=== PATIENT | male | born 1990 | race Caucasian/White ===

== ENCOUNTER → 2018-05-22 | Outpatient (CLI) | payer OTHER ==
[2018-05-22 12:31] LABS: BASOPHILS ABSOLUTE AUTO 0.06 K/mm3 (0.00-0.23); BASOPHILS PERCENT AUTO 1 % (0-2); EOSINOPHILS ABSOLUTE AUTO 0.16 K/mm3 (0.00-0.68); EOSINOPHILS PERCENT AUTO 3 % (0-6); Hematocrit 45.9 % (37.0-53.0); Hemoglobin 15.1 g/dL (13.5-17.5); IMMATURE GRAN ABSOLUTE AUTO 0.01 K/mm3 (0.00-0.10); IMMATURE GRAN PERCENT AUTO 0 % (0-1); LYMPHOCYTES ABSOLUTE AUTO 1.41 K/mm3 (0.84-5.20); LYMPHOCYTES PERCENT AUTO 28 % (21-46); MONOCYTES ABSOLUTE AUTO 0.44 K/mm3 (0.16-1.47); MONOCYTES PERCENT AUTO 9 % (4-13); Mean Corpuscular HGB 29.7 pg (26.0-34.0); Mean Corpuscular HGB Conc 32.9 g/dL (31.5-36.5); Mean Corpuscular Volume 90 fL (80-100); Mean Platelet Volume 11.7 fL (9.1-12.4); NEUTROPHILS ABSOLUTE AUTO 3.03 K/mm3 (1.96-9.15); NEUTROPHILS PERCENT AUTO 59 % (41-73); Platelet Count 258 K/mm3 (150-400); RDW Coefficient Variation 12.7 % (11.7-14.2); Red Blood Cell Count 5.09 M/mm3 (4.30-5.90); White Blood Cell Count 5.11 K/mm3 (4.00-11.30)
[2018-05-22 12:53] LABS: Alanine Aminotransfer (ALT/SGP 24 U/L (12-78); Albumin/Globulin Ratio 1.2 (0.8-1.8); Alk Phos 56 U/L (40-126); Anion Gap 3 mmol/L (6-16); Aspartate Aminotrans (AST/SGOT 13 U/L (12-37); Bilirubin, Total 1.8 mg/dL (0.1-1.0); Blood Urea Nitrogen 16 mg/dL (8-24); Bun/Creatinine Ratio 14.5 (12.0-20.0); CO2, Blood 29 mmol/L (21-32); Calcium, Blood 8.3 mg/dL (8.5-10.1); Chloride, Blood 105 mmol/L (98-108); Globulin, Blood 3.4 g/dL (2.2-4.0); Glomerular Filtration Rate >60 (60-); Glucose, Blood 82 mg/dL (70-99); Potassium, Blood 4.5 mmol/L (3.5-5.5); Sodium, Blood 137 mmol/L (136-145); Total Protein, Blood 7.4 g/dL (6.4-8.2)
[2018-05-23 17:43] LABS: Adenovirus F 40/41 Not Detected (NOT DETECT); Astrovirus Not Detected (NOT DETECT); Campylobacter Sp Not Detected (NOT DETECT); Cryptosporidium Not Detected (NOT DETECT); Cyclospora Cayetanensis Not Detected (NOT DETECT); E. Coli O157 Not Detected (NOT DETECT); Entamoeba Histolytica Not Detected (NOT DETECT); Enteroaggregative E. coli-EAEC Not Detected (NOT DETECT); Enteropathogenic E. coli-EPEC Not Detected (NOT DETECT); Enterotoxigenic E. coli-ETEC Not Detected (NOT DETECT); Giardia Lamblia Not Detected (NOT DETECT); Norovirus GI/GII Not Detected (NOT DETECT); Plesiomonas Shigelloides Not Detected (NOT DETECT); Rotavirus A Not Detected (NOT DETECT); Salmonella Sp Not Detected (NOT DETECT); Sapovirus Not Detected (NOT DETECT); Shiga Toxin-prod E. coli-STEC Not Detected (NOT DETECT); Shigella/Enteroin E. coli-EIEC Not Detected (NOT DETECT); Vibrio Cholerae Not Detected (NOT DETECT); Vibrio Sp Not Detected (NOT DETECT); Yersinia Enterocolitica Not Detected (NOT DETECT)
== END | disposition home or self-care (01) ==
LOC: LAB SHORT 12:22 → LAB EV 12:22
PROVIDERS: Physician Assistant
DX: R10.9 Unspecified abdominal pain (principal); R19.7 Diarrhea, unspecified
CPT/HCPCS: 80053; 83690; 85025; 87507

== ENCOUNTER 2018-08-14 14:27 | Emergency (ER) | payer OTHER ==
[~2018-08-14] VITALS: Ht 188 cm; Wt 72.6 kg
[2018-08-14 15:09] LABS: BASOPHILS ABSOLUTE AUTO 0.06 K/mm3 (0.00-0.23); BASOPHILS PERCENT AUTO 1 % (0-2); EOSINOPHILS ABSOLUTE AUTO 0.16 K/mm3 (0.00-0.68); EOSINOPHILS PERCENT AUTO 3 % (0-6); Hematocrit 47.7 % (37.0-53.0); Hemoglobin 15.4 g/dL (13.5-17.5); IMMATURE GRAN ABSOLUTE AUTO 0.01 K/mm3 (0.00-0.10); IMMATURE GRAN PERCENT AUTO 0 % (0-1); LYMPHOCYTES ABSOLUTE AUTO 1.46 K/mm3 (0.84-5.20); LYMPHOCYTES PERCENT AUTO 23 % (21-46); MONOCYTES PERCENT AUTO 6 % (4-13); Mean Corpuscular HGB 30.1 pg (26.0-34.0); Mean Corpuscular HGB Conc 32.3 g/dL (31.5-36.5); Mean Corpuscular Volume 93 fL (80-100); Mean Platelet Volume 11.6 fL (9.1-12.4); NEUTROPHILS ABSOLUTE AUTO 4.23 K/mm3 (1.96-9.15); NEUTROPHILS PERCENT AUTO 67 % (41-73); Platelet Count 248 K/mm3 (150-400); RDW Coefficient Variation 12.2 % (11.7-14.2); RDW Standard Deviation 42.2 fL (35.1-46.3); Red Blood Cell Count 5.12 M/mm3 (4.30-5.90); White Blood Cell Count 6.32 K/mm3 (4.00-11.30)
[2018-08-14 15:16] LABS: Source, Urine Clean Catch
[2018-08-14 15:20] LABS: Alanine Aminotransfer (ALT/SGP 28 U/L (12-78); Albumin, Blood 3.9 g/dL (3.4-5.0); Albumin/Globulin Ratio 1.1 (0.8-1.8); Alk Phos 58 U/L (50-136); Anion Gap 5 mmol/L (6-16); Aspartate Aminotrans (AST/SGOT 16 U/L (12-37); Bilirubin, Total 1.2 mg/dL (0.1-1.0); Blood Urea Nitrogen 17 mg/dL (8-24); Bun/Creatinine Ratio 14.3 (12.0-20.0); CO2, Blood 27 mmol/L (21-32); Calcium, Blood 9.1 mg/dL (8.5-10.1); Chloride, Blood 109 mmol/L (98-108); Creatinine, Blood 1.19 mg/dL (0.60-1.20); Globulin, Blood 3.6 g/dL (2.2-4.0); Glomerular Filtration Rate >60 (60-); Glucose, Blood 96 mg/dL (70-99); Potassium, Blood 4.2 mmol/L (3.5-5.5); Sodium, Blood 141 mmol/L (136-145); Total Protein, Blood 7.5 g/dL (6.4-8.2)
[2018-08-14 15:25] LABS: Bilirubin, Urine Neg (Neg); Blood, Urine Neg (Neg); Glucose Qualitative, Urine Neg (Neg); Ketones, Urine Neg (Neg); Leukocyte Esterase, Urine Neg (Neg); Nitrite, Urine Neg (Neg); Protein, Urine Neg (Neg); Specific Gravity, Urine 1.015 (1.003-1.022); Urobilinogen, Urine NORM (Normal)
[2018-08-14 15:31] LABS: Appearance, Urine Clear (Clear); Color, Urine Yellow (P-Yellow)
[2018-08-14 15:40] LABS: Free Thyroxine 0.79 ng/dL (0.70-1.60); Magnesium, Blood 2.2 mg/dL (1.6-2.4)
[2018-08-14 15:41] LABS: Thyroid Stimulating Hormone 2.38 uIU/mL (0.360-4.800)
[2018-08-14] MEDS ORDERED: ALBU90OI6 (16:12)
[2018-08-14] MEDS ORDERED: Bentyl10 MG PO (17:10)
[2018-09-30] MEDS ORDERED: Bentyl20 MG PO (10:48)
[2018-09-30] MEDS ORDERED: Multivitamin1 EAC1 PO (10:49)
[2018-09-30] MEDS ORDERED: ALBU90OI INH (10:50)
== END 2018-08-14 17:16 | disposition home or self-care (01) ==
LOC: ER 14:27
PROVIDERS: Physician Assistant
DX: R10.31 Right lower quadrant pain (principal); Z88.2 Allergy status to sulfonamides; Z88.1 Allergy status to other antibiotic agents
CPT/HCPCS: 36415; 80053; 81003; 83690; 83735; 84439; 84443; 85025; 86850; 86900; 86901; 99283

== ENCOUNTER 2018-10-03 10:18 | Day surgery (SDC) | payer OTHER ==
[~2018-10-03] VITALS: Ht 188 cm; Wt 74.0 kg
[~2018-10-03 10:18] MED LIST: ALBU90OI INH; ALBU90OI6; Bentyl10 MG PO; Bentyl20 MG PO; Multivitamin1 EAC1 PO
[2018-10-03] MEDS ORDERED: ZYRTEC10 M1 PO (10:54)
--- NOTE | 2018-10-03 11:13 | NUR ---
10/03/18 1113 Jordyn Morris History, Chart, Medications and Allergies reviewed before start of procedure.PATIENT DETERMINED TO BE ASA APPROPRIATE FOR PROPOFOL SEDATION PRIOR TO START OF PROCEDURE BY .MONITOR INTACT WITH CONTINUOUS PULSE OXIMETRY AND INTERMITTENT BP.3-LEAD EKG REVIEWED WITH PHYSICIAN PRIOR TO START OF PROCEDURE.O2 VIA N/C INTACT THROUGHOUT SEDATION/PROCEDURE.
--- NOTE | 2018-10-03 11:32 | NUR ---
INTO STEP VIA [place]. PT A&OX3. DENIES PAIN OR NAUSEA. VS WDL. NANCY INITIATED.
--- NOTE | 2018-10-03 12:04 | NUR ---
Ambulatory in Day Surgery Discharge instructions reviewed with patient. Patient verbalizes understanding. Copy given to patient to take home. Discharged via wheelchair to private car for ride home.
== END 2018-10-03 12:05 | disposition home or self-care (01) ==
LOC: ORSCMMR 10:18 → ORD 11:00 → ORSCMMR 11:30 → ORD 11:30 → ORSCMMR 12:05
PROVIDERS: Internal Medicine Gastroenterology
PROC: 0DBE8ZX Excision of Large Intestine, Via Natural or Artificial Opening Endoscopic, Diagnostic (ICD-10-PCS; principal; 2018-10-03 11:30)
PROC: 0DBB8ZX Excision of Ileum, Via Natural or Artificial Opening Endoscopic, Diagnostic (ICD-10-PCS; principal; 2018-10-03 11:30)
DX: K62.5 Hemorrhage of anus and rectum (principal); R10.31 Right lower quadrant pain
CPT/HCPCS: 88305; J2704; J7120

== ENCOUNTER 2021-06-22 14:06 | Emergency (ER) | payer OTHER ==
[~2021-06-22] VITALS: Ht 188 cm; Wt 83.9 kg
[~2021-06-22 14:06] MED LIST changes: +ZYRTEC10 M1 PO
[2021-06-22] MEDS ORDERED: CEPH500 PO (17:42)
== END 2021-06-22 18:08 | disposition home or self-care (01) ==
LOC: ER 14:06
DX: S01.21XA Laceration without foreign body of nose, initial encounter (principal); Z88.1 Allergy status to other antibiotic agents; Z88.2 Allergy status to sulfonamides; Z88.8 Allergy status to other drugs, medicaments and biological substances; Z79.899 Other long term (current) drug therapy; W26.0XXA Contact with knife, initial encounter
CPT/HCPCS: 99282-25; A9270